=== PATIENT | male | born 1990 | race African-American/Black ===

== ENCOUNTER 2017-09-06 13:35 | Emergency (ER) | payer OTHER ==
[2017-09-06] MEDS ORDERED: ACETAMINOPHEN 325 MG TABLET (FP) PO ONE (14:13)
--- NOTE | 2017-09-06 14:13 | PDOC ---
Rapid Medical Evaluation Time Seen by Provider: 09/06/17 14:10 Medical Evaluation: Allergies Allergy/AdvReac Type Severity Reaction Status Date / Time No Known Allergies Allergy Verified 12/16/15 13:14 09/06/17 14:12 I have performed a brief in-person evaluation of this patient. The patient presents with a chief complaint of: bodyaches w/ dry cough since yesterday Pertinent physical exam findings:Febrile to 102.7, rest of exam wnl I have ordered the following:tylenol 650mg and influenza The patient will proceed to the ED for further evaluation. 09/06/17 14:14
[2017-09-06 14:21] VITALS: BP 144/53; PULSE 106; BMI 23.7
[2017-09-06 15:35] VITALS: TEMP 98.8
--- NOTE | 2017-09-06 15:39 | PDOC ---
History of Present Illness - General Chief Complaint: SIRS, Suspected/Possible Stated Complaint: FEVER, HEADACHES, COUGH Time Seen by Provider: 09/06/17 14:10 History Source: Patient Exam Limitations: No Limitations - History of Present Illness Initial Comments: 09/06/17 15:34 27-year-old male presents the ED with complaints of myalgia, fever, headache, sore throat and cough since this morning. Patient states mother was here yesterday and tested positive for the flu in the main emergency room and started Tamiflu last night patient denies chest pain, shortness of breath, vomiting, abdominal pain ear pain, or rash. patient denies medical history Timing/Duration: reports: this morning Severity: reports: moderate Associated Symptoms: reports: cough, fever/chills, headache, sore throat Past History - Travel Traveled outside of the country in the last 30 days: No - Past Medical History Allergies/Adverse Reactions: Allergies Allergy/AdvReac Type Severity Reaction Status Date / Time No Known Allergies Allergy Verified 09/06/17 14:17 Home Medications: Ambulatory Orders NK [No Known Home Medication] 09/06/17 COPD: No - Immunization History Immunization Up to Date: Yes - Suicide/Smoking/Psychosocial Hx Smoking Status: No Smoking History: Never smoked Have you smoked in the past 12 months: No Number of Cigarettes Smoked Daily: 0 Information on smoking cessation initiated: No Hx Alcohol Use: No Drug/Substance Use Hx: No Substance Use Type: None Patient Lives Alone: No Lives with/in: parents Review of Systems - Review of Systems Able to Perform ROS?: Yes Constitutional: Yes: Fever, Malaise HEENTM: Yes: Difficulty Swallowing Respiratory: Yes: Cough Cardiac (ROS): No: Symptoms Reported ABD/GI: No: Symptoms Reported : No: Symptoms Reported Musculoskeletal: No: Symptoms Reported Integumentary: No: Symptoms Reported Neurological: Yes: Headache *Physical Exam - Vital Signs Last Vital Signs Temp Pulse Resp BP Pulse Ox 102.7 F H 106 H 18 144/53 100 09/06/17 14:11 09/06/17 14:11 09/06/17 14:11 09/06/17 14:11 09/06/17 14:11 - Physical Exam General Appearance: Yes: Nourished, Appropriately Dressed. No: Apparent Distress HEENT: positive: EOMI, EDSON, TMs Normal, Pharynx Normal. negative: Pale Conjunctivae Neck: positive: Supple Respiratory/Chest: positive: Lungs Clear, Normal Breath Sounds. negative: Respiratory Distress, Accessory Muscle Use Cardiovascular: positive: Regular Rhythm, Tachycardia. negative: Murmur Gastrointestinal/Abdominal: positive: Soft. negative: Tenderness Extremity: positive: Normal Capillary Refill Integumentary: positive: Normal Color, Warm, Moist Neurologic: positive: Motor Strength 12/21 ED Treatment Course - ADDITIONAL ORDERS Additional order review: 09/06/17 14:20 Influenza Types A,B Antigen (SHAKIRA) - Final Nasopharyngeal Swab - Final Medical Decision Making - Medical Decision Making 09/06/17 15:38 Patient with URI symptoms, flulike symptoms with a 1 at 2.6 fever in triage. Patient was given Tylenol and influenza was sent. Influenza resulted as negative but clinically patient presented as influenza along with 3 other members in his home positive for influenza A. Patient be discharged home with Tamiflu. *DC/Admit/Observation/Transfer Diagnosis at time of Disposition: Influenza - Discharge Dispostion Disposition: HOME Condition at time of disposition: Improved - Referrals - Patient Instructions Printed Discharge Instructions: DI for Influenza -- Adult Additional Instructions: Take Motrin and Tylenol every 6-8 hours for adequate fever and pain control. Drink plenty of fluids and take Tamiflu until completed. - Post Discharge Activity
== END 2017-09-06 15:45 | disposition home or self-care (01) ==
LOC: JERFT 13:35 → JER 13:35 → JERFT 15:45
DX: J11.1 Influenza due to unidentified influenza virus with other respiratory manifestations (principal)
CPT/HCPCS: 87804; 99281-25

== ENCOUNTER 2017-12-24 17:13 | Emergency (ER) | payer OTHER ==
--- NOTE | 2017-12-24 17:34 | PDOC ---
Rapid Medical Evaluation Time Seen by Provider: 12/24/17 17:30 Medical Evaluation: Allergies Allergy/AdvReac Type Severity Reaction Status Date / Time No Known Allergies Allergy Verified 12/24/17 17:30 12/24/17 17:30 I have performed a brief in-person evaluation of this patient. The patient presents with a chief complaint of: HILLIARD w/ nasal congestion x several days. No rhinorrhea, no fever currently. No pmhx Pertinent physical exam findings:stable and well yudy I have ordered the following:nothing The patient will proceed to the ED for further evaluation. Discharge Disposition - Diagnosis Headache Qualifiers: Headache type: unspecified Headache chronicity pattern: unspecified pattern Intractability: not intractable Qualified Code(s): R51 - Headache - Referrals - Patient Instructions - Post Discharge Activity
[2017-12-24 17:39] VITALS: BP 129/67; PULSE 88; TEMP 98.6; BMI 23.7
--- NOTE | 2017-12-24 19:17 | PDOC ---
History of Present Illness - General Chief Complaint: Cold Symptoms Stated Complaint: PAIN Time Seen by Provider: 12/24/17 17:30 History Source: Patient Exam Limitations: No Limitations - History of Present Illness Initial Comments: 12/24/17 19:40 Patient is a 27-year-old male history of sinus infections presents with left sided sinus pressure pain, left nares congestion, and headache. Reports having a fever 2 days prior to arrival. Denies any visual disturbance, no neurosensory deficits, no nausea vomiting, no dizziness. Past Medical History: [Denies]. Allergies: No known allergies Medications: None Family History: Non-contributory Social History: Denies smoking, alcohol use, or IVDU Review of Systems GENERAL/CONSTITUTIONAL: [No fever or chills. No weakness. No weight change.] HEAD, EYES, EARS, NOSE AND THROAT: [No change in vision. No ear pain or discharge. No sore throat. Nares congestion, left frontal sinus pressure and pain ] CARDIOVASCULAR: [No chest pain or shortness of breath.] RESPIRATORY: [No cough, wheezing, or hemoptysis.] GASTROINTESTINAL: [No nausea, vomiting, diarrhea or constipation. No rectal bleeding.] GENITOURINARY: [No dysuria, frequency, or change in urination.] MUSCULOSKELETAL: [No joint or muscle swelling or pain. No neck or back pain.] SKIN AND BREASTS: [No rash or easy bruising.] NEUROLOGIC: [No headache, vertigo, loss of consciousness, or loss of sensation.] PSYCHIATRIC: [No depression or anxiety.] ENDOCRINE: [No increased thirst. No abnormal weight change.] HEMATOLOGIC/LYMPHATIC: [No anemia, easy bleeding, or history of blood clots.] ALLERGIC/IMMUNOLOGIC: [No hives or skin allergy. No latex allergy.] Physical Exam: GENERAL: [The patient is awake, alert, and fully oriented, in no acute distress. ] HEAD: [Normal with no signs of trauma.] EYES: [Pupils equal, round and reactive to light, extraocular movements intact, sclera anicteric, conjunctiva clear.] ENT: [Ears normal, nares are erythematous with the discharge on the left, normal on the right left frontal sinus pressure and pain, oropharynx clear without exudates. Moist mucous membranes. No uvula deviation] NECK: [Normal range of motion, supple without lymphadenopathy, JVD, or masses.] LUNGS: [Breath sounds equal, clear to auscultation bilaterally. No wheezes, and no crackles.] HEART: [Regular rate and rhythm, normal S1 and S2 without murmur, rub or gallop. ] ABDOMEN: [Soft, nontender, normoactive bowel sounds. No guarding, no rebound. No masses. No bruising or abrasions] RECTAL : [Guaiac negative, normal rectal tone.] MUSCULOSKELETAL: [Normal range of motion, no edema. No clubbing or cyanosis. No cords, erythema, or tenderness. No CVA Tenderness with fist.] NEUROLOGICAL: [Cranial nerves II through XII grossly intact. Normal speech, normal gait.] SKIN: [Warm, Dry, normal turgor, no rashes or lesions noted.] Past History - Past Medical History Allergies/Adverse Reactions: Allergies Allergy/AdvReac Type Severity Reaction Status Date / Time No Known Allergies Allergy Verified 12/24/17 17:30 Home Medications: Ambulatory Orders Amox-Tr/K Cl [Augmentin - 875Mg Tablet] 1 tab PO BID #14 tablet 12/24/17 Fluticasone Prop 0.05% Nasal [Flonase -] 1 - 2 spray NS BID #1 spray.pump Loratadine [Claritin -] 10 mg PO DAILY #30 tablet 12/24/17 COPD: No DVT: No - Immunization History Immunization Up to Date: Yes - Suicide/Smoking/Psychosocial Hx Smoking Status: No Smoking History: Never smoked Have you smoked in the past 12 months: No Number of Cigarettes Smoked Daily: 0 Information on smoking cessation initiated: No Hx Alcohol Use: No Drug/Substance Use Hx: No Substance Use Type: None *Physical Exam - Vital Signs Last Vital Signs Temp Pulse Resp BP Pulse Ox 98.6 F 88 18 129/67 100 12/24/17 17:31 12/24/17 17:31 12/24/17 17:31 12/24/17 17:31 12/24/17 17:31 Medical Decision Making - Medical Decision Making 12/24/17 19:42 A/P: Patient here for evaluation of left sinus pressure and pain, congestion noted to same. History of same was diagnosed with sinusitis patient's clinical signs are highly suggestive of a sinusitis now. Start patient on Augmentin, Flonase and Claritin, follow-up with ENT *DC/Admit/Observation/Transfer Diagnosis at time of Disposition: Sinusitis Qualifiers: Sinusitis location: frontal Chronicity: acute Recurrence: non-recurrent Qualified Code(s): J01.10 - Acute frontal sinusitis, unspecified - Discharge Dispostion Disposition: HOME Condition at time of disposition: Stable Decision to Admit order: No - Prescriptions Prescriptions: Amox-Tr/K Cl [Augmentin - 875Mg Tablet] 1 tab PO BID #14 tablet Fluticasone Prop 0.05% Nasal [Flonase -] 1 - 2 spray NS BID #1 spray.pump Loratadine [Claritin -] 10 mg PO DAILY #30 tablet - Referrals Referrals: John Godoy MD [Staff Physician] - - Patient Instructions Printed Discharge Instructions: DI for Sinusitis Additional Instructions: Increase fluids to prevent dehydration Motrin for fever greater than 101.0 Please followup with primary care in 3 days if symptoms persist Return to emergency department any increased cough, fever, inability to drink or other concerns - Post Discharge Activity Forms/Work/School Notes: Back to Work
== END 2017-12-24 19:31 | disposition home or self-care (01) ==
LOC: JERFT 17:13 → JER 17:13 → JERFT 19:31
DX: J01.10 Acute frontal sinusitis, unspecified (principal)
CPT/HCPCS: 99281-25

== ENCOUNTER 2018-05-08 17:12 | Emergency (ER) | payer SELFPAY ==
[2018-05-08 17:34] VITALS: BP 106/67; PULSE 78; TEMP 98.6; BMI 23.7
--- NOTE | 2018-05-08 18:04 | PDOC ---
History of Present Illness - General Chief Complaint: Cold Symptoms Stated Complaint: COLD SYMPTOMS Time Seen by Provider: 05/08/18 17:38 History Source: Patient Exam Limitations: No Limitations - History of Present Illness Initial Comments: Patient is a 27-year-old male who states that over the past 4 days he has had clear nasal drainage. Patient denies fever, denies sick contacts or recent travel. He denies purulent drainage, denies maxillary or frontal sinus pressure. Denies attempting [id number] meds. Denies any aggravating or relieving factors. 05/08/18 18:01 Past History - Travel Traveled outside of the country in the last 30 days: No Close contact w/someone who was outside of country & ill: No - Past Medical History Allergies/Adverse Reactions: Allergies Allergy/AdvReac Type Severity Reaction Status Date / Time No Known Allergies Allergy Verified 05/08/18 17:30 Home Medications: Ambulatory Orders NK [No Known Home Medication] 05/08/18 COPD: No DVT: No - Immunization History Immunization Up to Date: Yes - Suicide/Smoking/Psychosocial Hx Smoking Status: No Smoking History: Never smoked Have you smoked in the past 12 months: No Number of Cigarettes Smoked Daily: 0 Hx Alcohol Use: No Drug/Substance Use Hx: No Substance Use Type: None Review of Systems - Review of Systems Able to Perform ROS?: Yes Constitutional: No: Chills, Fever Respiratory: No: Cough Cardiac (ROS): No: Chest Pain All Other Systems: Reviewed and Negative *Physical Exam - Vital Signs Last Vital Signs Temp Pulse Resp BP Pulse Ox 98.6 F 78 20 106/67 97 05/08/18 17:32 05/08/18 17:32 05/08/18 17:32 05/08/18 17:32 05/08/18 17:32 - Physical Exam Comments: Constitutional: VS stated, pt appears in no apparent distress; sitting in chair. Skin: Warm and dry. Intact, no lesions or excoriations. Head: Normocephalic; atraumatic Eyes: conjunctiva pink without injection or discharge. Ears: No tenderness present. Canals without injection or discharge; TM clear, no retractions or bulging. Nose: Patent, mucosa pink. No drainage. Sinuses: No tenderness over frontal and maxillary sinuses. Throat: Oropharynx with pink and moist mucosa. Dentition good. No pharyngeal edema; erythema or exudate. Tongue normal, no fasciculations. Airway Patent. Hypoglossal area is soft. Uvula is midline. Neck: Supple, non-tender, with full ROM, trachea midline, no anterior/posterior cervical chain lymphadenopathy, thyroid nonpalpable. No stridor or bruits. Lungs: Bilateral breath sounds clear upon auscultation. No adventitious breath sounds. Heart: Regular rate and rhythm, S1/S2 auscultated. No murmurs, rubs, or gallops. No visible pulsations, heaves, or lifts on precordium. Musculoskeletal: Moves all extremities without difficulty. Neurologic: Awake, alert. Conversation fluent. Normal attention. Psychiatric: Appropriate affect. 05/08/18 18:02 *DC/Admit/Observation/Transfer Diagnosis at time of Disposition: Common cold - Discharge Dispostion Disposition: HOME Condition at time of disposition: Stable Decision to Admit order: No - Referrals - Patient Instructions Printed Discharge Instructions: How to Avoid a Cold or Flu - Post Discharge Activity
== END 2018-05-08 18:18 | disposition home or self-care (01) ==
LOC: JERFT 17:12
DX: J00 Acute nasopharyngitis [common cold] (principal)
CPT/HCPCS: 99281-25